=== PATIENT | female | born 1975 | race Caucasian/White ===

== ENCOUNTER 2016-05-26 11:28 | Emergency (ER) | payer BC, OTHER ==
[~2016-05-26] VITALS: Ht 147.3 cm; Wt 52.2 kg
[~2016-05-26 11:28] MED LIST: CIPR500T4 PO; CITA20TA12 PO; DZPM2T PO; FLUC100T PO; METR500T PO; MICO45CR71 VG; NITR100C44 PO; SULF-222 PO
--- OUTSIDE RECORDS SUMMARY | 2016-05-26 11:34 | XMS REPORT ---
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
[2016-05-26] MEDS ORDERED: GABA-488 (11:59)
[2016-05-26] MEDS ORDERED: CLON0.1T (11:59)
[2016-05-26] MEDS ORDERED: TRAZ-28 (11:59)
[2016-05-26] MEDS ORDERED: CYCL10TA9 (11:59)
[2016-05-26] MEDS ORDERED: LOXA10CA (11:59)
[2016-05-26] MEDS ORDERED: LEVO50TA6 (11:59)
[2016-05-26] MEDS ORDERED: FLUO40CA (11:59)
[2016-05-26] MEDS ORDERED: BUSP15TA60 (11:59)
--- NOTE | 2016-05-26 12:12 | ED General ---
General Chief Complaint: Dizziness/Syncope Stated Complaint: DIZZINESS/VOMITING Nursing Triage Note: Wheeled to rm 10. Patient had to stop wheelchair because of dizziness. Unable to obtaqin urine sample- urinated behind hat. PAtient states she has had dizziness and vomiting since - worse yesterday. States she was placed on minipress 1 week ago for nightmares and stopped it friday thinking that was causing sx. no improvement. also wants left ear checked Nursing Sepsis Screen: No Definite Risk Source of Information: Patient Exam Limitations: No Limitations History of Present Illness Time Seen by Provider: 12:11 Initial Comments This 40-year-old white female presents with dizziness that began 2 days ago and has gradually worsened causing her to come to the emergency department. The patient states the onset was gradual. The patient has felt unsteady. She has had no associated vomiting although she is nauseated. She denies previous significant head trauma or similar episode in the past. The patient has discontinued medication several days ago that she was taking to treat her nightmares. This is not improve her symptoms. The patient states that she requires support in order to ambulate. She denies lateralizing or localizing neurologic complaints. Patient denies smoking drinking or drugs. Allergies and Home Medications Allergies Uncoded Allergies: BACRIM (Allergy, Unknown, hives, fever, 05/26/16) Home Medications Buspirone HCl 15 Mg Tablet #60 (Reported) Citalopram Hydrobromide 20 Mg Tablet 20 MG PO DAILY (Reported) Clonidine HCl 0.1 Mg Tablet #30 (Reported) Cyclobenzaprine HCl 10 Mg Tablet #60 (Reported) Diazepam 2 Mg Tab 1 EACH PO BID PRN (Reported) Fluconazole 100 Mg Tab #14 1 EACH PO DAILY Prescribed by: OUMOU COOK on 01/18/14 2331 Fluoxetine HCl 40 Mg Capsule #30 (Reported) Gabapentin 300 Mg Capsule #90 (Reported) Levothyroxine Sodium 50 Mcg Tablet #30 (Reported) Loxapine Succinate 10 Mg Capsule #90 (Reported) Metronidazole 500 Mg Tablet #20 500 MG PO BID Prescribed by: OUMOU COOK on 01/18/14 2331 Miconazole Nitrate 45 Gm Cream.appl 7Days 0 VG HS (Reported) 1 APPLICATORFUL Trazodone HCl 50 Mg Tablet (Reported) Constitutional: No chills, No fever EENTM: No ear pain, No vision loss Respiratory: No cough Cardiovascular: No chest pain, No palpitations Gastrointestinal: No abdominal pain, No diarrhea, nauseaNo vomiting Genitourinary: No dysuria, No frequency, No hematuria Musculoskeletal: No back pain Skin: No rash Psychiatric/Neurological: Anxiety Depressed Emotional Problems Other (bipolar) Hematologic/Lymphatic: No Symptoms Reported Immunological/Allergic: no symptoms reported Past Oowthmf-Ssosco-Xgdshb Hx Patient Social History Alcohol Use: Occasionally Uses Recreational Drug Use: No Smoking Status: Never a Smoker 2nd Hand Smoke Exposure: Yes Recent Foreign Travel: No Contact w/Someone Who Travel: No Recent Infectious Disease Expo: No Recent Hopitalizations: No Immunizations Up To Date Tetanus Booster (TDap): More than 5yrs Seasonal Allergies Seasonal Allergies: No Surgeries HX Surgeries: No Respiratory Hx Respiratory Disorders: No Cardiovascular Hx Cardiac Disorders: No Neurological Hx Neurological Disorders: No Reproductive System Hx Reproductive Disorders: No Sexually Transmitted Disease: No HIV/AIDS: No Genitourinary Hx Genitourinary Disorders: No Gastrointestinal Hx Gastrointestinal Disorders: No Musculoskeletal Hx Musculoskeletal Disorders: Yes Musculoskeletal Disorders: Chronic Back Pain Endocrine Hx Endocrine Disorders: Yes Endocrine Disorders: Hypothyroidsim HEENT HX ENT Disorders: No Cancer Hx Cancer: No Psychosocial Hx Psychiatric Problems: Yes Behavioral Health Disorders: Anxiety, PTSD, Bipolar, Depression Integumentary HX Skin/Integumentary Disorder: No Blood Transfusions Hx Blood Disorders: No Adverse Reaction to a Blood Tr: No Reviewed Nursing Assessment Reviewed/Agree w Nursing PMH: Yes Family Medical History Significant Family History: No Pertinent Family Hx Physical Exam Vital Signs Vital Sign - Last 12Hours 05/26/16 11:50 Temp 98.0 Pulse 68 Resp 18 B/P 123/59 Pulse Ox 99 Capillary Refill : Less Than 3 Seconds General Appearance: Mild Distress Eyes: Bilateral Eye Normal Inspection HEENT: TMs Normal (left tympanic membrane is clear. There is wax in the right auditory canal.) Neck: Normal Inspection Non Tender Respiratory: Chest Non Tender Lungs Clear Normal Breath Sounds Cardiovascular: Regular Rate, Rhythm No Gallop No Murmur Gastrointestinal: Normal Bowel Sounds No Organomegaly No Pulsatile Mass Non Tender Soft Back: Normal Inspection Extremity: Normal Inspection Normal Range of Motion Non Tender Neurologic/Psychiatric: Alert Oriented x3 No Motor/Sensory Deficits dining host II- XII Norm as Tested Other (all the patient is markedly dizzy and her symptoms are increased with voluntary eye movement I do not perceive any nystagmus.) Skin: Normal Color Warm/Dry Progress/Results/Core Measures Results/Orders Lab Results Laboratory Tests Test 05/26/16 12:05 05/26/16 13:30 Range/Units Acetaminophen Level < 10 L 10-30 UG/ML Alanine Aminotransferase (ALT/SGPT) 14 0-55 U/L Albumin 4.6 H 3.2-4.5 G/DL Alkaline Phosphatase 75 40-136 U/L Anion Gap 14 5-14 MMOL/L Aspartate Amino Transf (AST/SGOT) 14 5-34 U/L BUN/Creatinine Ratio 15 Band Neutrophils 0 % Basophils # (Auto) 0.0 0.0-0.1 10^3/uL Basophils % (Manual) 0 % Basophils (%) (Auto) 0 0-10 % Blood Morphology Comment NORMAL Blood Urea Nitrogen 12 7-18 MG/DL Calcium Level 9.8 8.5-10.1 MG/DL Carbon Dioxide Level 21 21-32 MMOL/L Chloride Level 107 98-107 MMOL/L Creatinine 0.79 0.60-1.30 MG/DL Eosinophils # (Auto) 0.0 0.0-0.3 10^3/uL Eosinophils % (Manual) 0 % Eosinophils (%) (Auto) 0 0-10 % Erythrocyte Sedimentation Rate 11 0-20 MM/HR Estimat Glomerular Filtration Rate > 60 Glucose Level 121 H 70-105 MG/DL Hematocrit 38 35-52 % Hemoglobin 13.4 11.5-16.0 G/DL Lymphocytes # (Auto) 1.0 1.0-4.0 X 10^3 Lymphocytes % (Manual) 8 % Lymphocytes (%) (Auto) 8 L 12-44 % Mean Corpuscular Hemoglobin 31 25-34 PG Mean Corpuscular Hemoglobin Concent 35 32-36 G/DL Mean Corpuscular Volume 88 80-99 FL Mean Platelet Volume 10.5 H 7.4-10.4 FL Monocytes # (Auto) 0.4 0.0-1.0 X 10^3 Monocytes % (Manual) 1 % Monocytes (%) (Auto) 4 0-12 % Neutrophils # (Auto) 10.4 H 1.8-7.8 X 10^3 Neutrophils % (Manual) 91 % Neutrophils (%) (Auto) 88 H 42-75 % Platelet Count 430 H 130-400 10^3/uL Potassium Level 3.4 L 3.6-5.0 MMOL/L Red Blood Count 4.35 4.35-5.85 10^6/uL Red Cell Distribution Width 12.8 10.0-14.5 % Serum Alcohol < 10 <10 MG/DL Sodium Level 142 135-145 MMOL/L TSH [place] Testing 1.20 0.35-4.94 UIU/ML Total Bilirubin 0.6 0.1-1.0 MG/DL Total Protein 8.1 6.4-8.2 G/DL Toxic Granulation 1+ Troponin I < 0.30 <0.30 NG/ML White Blood Count 11.9 H 4.3-11.0 10^3/uL Ur Tricyclic Antidepressants Screen NEGATIVE NEGATIVE Urine Amphetamines Screen NEGATIVE NEGATIVE Urine Bacteria TRACE /HPF Urine Barbiturates Screen NEGATIVE NEGATIVE Urine Benzodiazepines Screen POSITIVE H NEGATIVE Urine Bilirubin 1+ H NEGATIVE Urine Cannabinoids Screen NEGATIVE NEGATIVE Urine Casts NONE /LPF Urine Clarity SLIGHTLY CLOUDY Urine Cocaine Screen NEGATIVE NEGATIVE Urine Color RED H Urine Crystals NONE /LPF Urine Culture Indicated YES Urine Glucose (UA) NEGATIVE NEGATIVE Urine Ketones 4+ H NEGATIVE Urine Leukocyte Esterase 2+ H NEGATIVE Urine Methadone Screen NEGATIVE NEGATIVE Urine Methamphetamines Screen NEGATIVE NEGATIVE Urine Mucus NEGATIVE /LPF Urine Nitrite NEGATIVE NEGATIVE Urine Opiates Screen NEGATIVE NEGATIVE Urine Oxycodone Screen NEGATIVE NEGATIVE Urine Phencyclidine Screen NEGATIVE NEGATIVE Urine Test NEGATIVE NEGATIVE Urine Propoxyphene Screen NEGATIVE NEGATIVE Urine Protein 3+ H NEGATIVE Urine RBC TNTC H /HPF Urine RBC (Auto) 5+ H NEGATIVE Urine Specific [place] 1.010 L 1.016-1.022 Urine Squamous Epithelial Cells 10-25 H /HPF Urine Urobilinogen 1 NORMAL MG/DL Urine WBC 5-10 H /HPF Urine pH 8 5-9 My Orders Orders-KEVIN ARCE MD Cbc With Automated Diff (05/26/16 12:13) Comprehensive Metabolic Panel (05/26/16 12:13) Ua Culture If Indicated (05/26/16 12:13) Ct Head Wo (05/26/16 12:13) Erythrocyte Sedimentation Rate (05/26/16 12:13) Diphenhydramine Injection (Benadryl Inje (05/26/16 12:15) Diazepam Injection (Valium Injection) (05/26/16 12:15) Manual Differential (05/26/16 12:05) Urine Culture (05/26/16 13:30) Medications Given in ED Current Medications Medications Dose Ordered Sig/Anthony Route Start Time Stop Time Status Last Admin Dose Admin Diazepam 5 mg ONCE ONCE IV 05/26/16 12:15 05/26/16 12:16 DC 05/26/16 12:38 5 MG Diphenhydramine HCl 25 mg ONCE ONCE IVP 05/26/16 12:15 05/26/16 12:16 DC 05/26/16 12:38 25 MG Vital Signs/I&O Vital Sign - Last 12Hours 05/26/16 11:50 Temp 98.0 Pulse 68 Resp 18 B/P 123/59 Pulse Ox 99 Blood Pressure Mean: 80 Progress Note : Time: 14:47 Progress Note This patient improved dramatically with the Valium and Phenergan. Patient's laboratory and CT evaluation were essentially unremarkable other than a urinary tract infection. I discussed the findings with the patient and she is agreeable to treatment with Phenergan, Valium, and Cipro. She will follow up closely with her doctor tomorrow morning. Departure Impression Impression: Primary Impression: Vertigo Additional Impression: UTI (urinary tract infection) Qualified Code: N30.00 - Acute cystitis without hematuria Disposition: HOME, SELF-CARE Condition: Improved Departure-Patient Inst. Decision time for Depature: 14:49 Referrals: [facility] [place] (PCP/Family) Primary Care Physician Patient Instructions: VERTIGO Add. Discharge Instructions: Valium for dizziness, Phenergan for nausea, Cipro for urinary tract infection. Close follow-up with [facility] tomorrow. Return if any problems or questions. All discharge instructions reviewed with patient and/or family. Voiced understanding. KEVIN ARCE MD May 26, 2016 12:12
[2016-05-26] MEDS ORDERED: diphenhydrAMINE 50 MG/ML INJ (BENADRYL) IVP ONE (12:15)
[2016-05-26] MEDS ORDERED: DIAZEPAM INJ 10 MG/2 ML (VALIUM) SYR IV ONE (12:15)
[2016-05-26 12:21] LABS: BASOPHILS % (AUTO) 0 % (0-10); EOSINOPHILS % (AUTO) 0 % (0-10); LYMPHOCYTES % (AUTO) 8 % (12-44); MEAN CORPUSCULAR HEMOGLOBIN 31 PG (25-34); MEAN CORPUSCULAR HGB CONC 35 G/DL (32-36); MEAN CORPUSCULAR VOLUME 88 FL (80-99); MEAN PLATELET VOLUME 10.5 FL (7.4-10.4); MONOCYTES # (AUTO) 0.4 X 10^3 (0.0-1.0); MONOCYTES % (AUTO) 4 % (0-12); NEUTROPHILS # (AUTO) 10.4 X 10^3 (1.8-7.8); NEUTROPHILS % (AUTO) 88 % (42-75); PLATELET COUNT 430 10^3/uL (130-400); RED BLOOD COUNT 4.35 10^6/uL (4.35-5.85); RED CELL DISTRIBUTION WIDTH 12.8 % (10.0-14.5); WHITE BLOOD COUNT 11.9 10^3/uL (4.3-11.0)
[2016-05-26 12:34] LABS: ALANINE AMINOTRANSFERASE 14 U/L (0-55); ALBUMIN 4.6 G/DL (3.2-4.5); ANION GAP 14 MMOL/L (5-14); ASPARTATE AMINO TRANSFERASE 14 U/L (5-34); BILIRUBIN,TOTAL 0.6 MG/DL (0.1-1.0); BLOOD UREA NITROGEN 12 MG/DL (7-18); BUN/CREATININE RATIO 15; CALCIUM 9.8 MG/DL (8.5-10.1); CARBON DIOXIDE 21 MMOL/L (21-32); CHLORIDE 107 MMOL/L (98-107); CREATININE SERUM 0.79 MG/DL (0.60-1.30); GFR ESTIMATED > 60; GLUCOSE 121 MG/DL (70-105); POTASSIUM 3.4 MMOL/L (3.6-5.0); SODIUM 142 MMOL/L (135-145); TOTAL PROTEIN 8.1 G/DL (6.4-8.2)
[2016-05-26 12:35] LABS: ACETAMINOPHEN < 10 UG/ML (10-30); ALCOHOL < 10 MG/DL (<10)
[2016-05-26 12:40] LABS: ERYTHROCYTE SEDIMENTATION RATE 11 MM/HR (0-20)
[2016-05-26 12:46] LABS: BAND NEUTROPHILS 0 %; BASOPHILS % (MANUAL) 0 %; EOSINOPHILS % (MANUAL) 0 %; LYMPHOCYTES % (MANUAL) 8 %; NEUTROPHILS % (MANUAL) 91 %
[2016-05-26 12:54] LABS: TROPONIN I < 0.30 NG/ML (<0.30)
--- NOTE | 2016-05-26 12:57 | Diagnostic Imaging Report ---
PROCEDURE: CT head without contrast. TECHNIQUE: Multiple contiguous axial images were obtained through the brain without the use of intravenous contrast. INDICATION: Dizziness, nausea and vomiting. There are no prior studies available for comparison. There is no mass, shift of midline or hemorrhage to suggest an acute intracranial abnormality. The ventricles are not abnormally dilated. There is mild cortical atrophy present. The degree of atrophy is somewhat greater than expected for a patient of this age but not necessarily abnormal. The bone windows show no sign of a fracture or for a destructive lesion. The orbits and sinuses were not visualized in their entirety. Where visualized there is no acute abnormality. IMPRESSION: 1. There is no evidence for an acute intracranial abnormality. 2. If clinical concern regarding an underlying abnormality persists, then MRI would be recommended for further study. Dictated by: Dictated on workstation # [id number]
[2016-05-26 13:40] LABS: KETONES,URINE 4+ (NEGATIVE); LEUKOCYTE ESTERASE ,URINE 2+ (NEGATIVE); NITRITE,URINE NEGATIVE (NEGATIVE); PH,URINE 8 (5-9); PROTEIN,URINE 3+ (NEGATIVE); UROBILINOGEN,URINE 1 MG/DL (NORMAL)
[2016-05-26 13:53] LABS: BILIRUBIN,URINE 1+ (NEGATIVE)
[2016-05-26 15:11] VITALS: BP 120/71
== END 2016-05-26 15:11 | disposition home or self-care (01) ==
LOC: EDUNIT# 11:28 → ER 11:31
DX: R42 Dizziness and giddiness (principal); N39.0 Urinary tract infection, site not specified; R11.10 Vomiting, unspecified
CPT/HCPCS: 36415; 70450; 80053; 80306; 80320; 80329; 81000; 84443; 84484; 84703; 85007; 85027; 85652; 87088; 93005; 96374; 96375